=== PATIENT | female | born 2000 | race African-American/Black ===

== ENCOUNTER 2022-12-26 08:39 | Emergency (ER) | payer OTHER, SELFPAY ==
[2022-12-26 09:36] VITALS: BP 133/67; PULSE 76; RESP 18; TEMP 36.1; O2SAT 97; BMI 43.7
[2022-12-26] MEDS: Lidocaine 4 % Patch ADH..PATCH 2 PATCH TRANSDERMA (10:50)
[2022-12-26] MEDS: Cyclobenzaprine HCl 10 MG TABLET PO (10:50)
[2022-12-26] MEDS: Ketorolac Tromethamine 15 MG/ML VIAL 30 MG IM (10:56)
--- NOTE | 2022-12-26 11:15 | ED.BACK ---
HPI - Back Pain/Injury General Chief Complaint: Back Pain/Injury Stated Complaint: back pain Time Seen by Provider: 12/26/22 09:54 Source: patient Mode of arrival: ambulatory Limitations: no limitations History of Present Illness HPI Narrative: 22-year-old female hx of obesity, presenting to the emergency department for evaluation of bilateral lower back pain in the lumbar region, pain started last night, she attributes this pain to heavy lifting from groceries, she reports she was helping a friend when this started. She has been having an aching pain to bilateral lumbar region since yesterday, took Motrin 800 mg with little to no relief this morning. Patient reports she is very uncomfortable. Was brought in by her school. She denies fevers, chills, numbness, tingling, saddle paresthesias, weakness, urinary/ bowel incontinence / retention. No history of IV drug abuse or malignancy Related Data Previous Rx's Medication Instructions Recorded cyclobenzaprine 10 mg tablet 10 mg PO BEDTIME PRN muscle spasm 12/26/22 #7 tabs ketorolac 10 mg tablet 10 mg PO TID PRN pain 5 days #15 12/26/22 tabs lidocaine 5 % topical patch 1 patch topical DAILY PRN pain #15 12/26/22 ea prednisone 20 mg tablet 40 mg PO DAILY 5 days #10 tabs 12/26/22 Allergies Allergy/AdvReac Type Severity Reaction Status Date / Time Unable to Assess Allergy Unverified 12/26/22 10:39 Review of Systems Review of Systems: Constitutional : No Weight loss, No Fever, No Chills, ENT/Mouth : No Hearing loss, No Ear Pain, No Nasal Congestion, No Sinus Pain, No Hoarseness, No sore throat, No Rhinorrhea, No Swallowing Difficulty Cardiovascular : No Chest Pain, No SOB Respiratory : No Cough, No Dyspnea Gastrointestinal : No Nausea, No Vomiting, No Diarrhea, No abdominal Pain, No Hematochezia, No Melena Genitourinary : No Dysuria, No Urinary Frequency, No Hematuria, No Urinary Incontinence, Musculoskeletal : positive back pain Skin : No Skin Lesions, No rash Neuro : No Weakness, No Numbness, No Paresthesias, no loss of bowel or bladder incontinence, no saddle anesthesia Yes all other systems are reviewed and are negative PMFSH Past Medical History Attestation statement: The following information was validated with the patient. Source: old records reviewed and nursing notes reviewed Social History Social History Advance Directives: No Physical Exam Vital Signs: Vital Signs: Last Vital Signs Temp 96.6 F L 12/26/22 11:49 Pulse 62 12/26/22 11:49 Resp 18 12/26/22 11:49 BP 136/63 12/26/22 11:49 Pulse Ox 100 12/26/22 11:49 O2 Del Method Room Air 12/26/22 11:49 BMI result Body Mass Index 43.7 vss Appearance: Alert.? Oriented X3.? No acute distress.? Head: Normocephalic, atraumatic, no step-offs or deformities Eyes: Pupils equal, round and reactive to light.? CVS: Normal heart rate and rhythm.? Pulses normal.? Respiratory: No respiratory distress.? Breath sounds normal.? Skin: Skin warm and dry.? Normal skin color.? Normal skin turgor.? Extremities: No lower extremity edema.? No calf ttp. 5/5 strength to bilateral upper and lower extremities Back: No midline tenderness, no C-spine tenderness, full range of motion, no CVA tenderness bilaterally Negative straight leg raise bilaterally.+ there is lumbar paraspinous tenderness throughout bilaterally. Neuro: Oriented X 3.? No motor deficit.? No sensory deficit. CN 2-12 intact . No saddle paresthesias. Ambulating with steady gait normal coordination. Course Reevaluation(s) Reevaluation #1: Patient ambulatory around the department stating she feels much better however still having some residual pain. Will give Tylenol, discharge her home with Toradol, cyclobenzaprine, Lidoderm patch and short course of prednisone. Gave her spine is for follow-up. Educated patient on diagnosis and treatment plan, answered all question, patient verbalizes understanding. At this time patient will be discharged home, advised to return with new or worsening symptoms. Educated on worrisome signs and symptoms and when to return. At this time I feel comfortable discharge home. Time: 12:31 Medications Administered Discontinued Medications Generic Name Dose Route Start Last Admin Trade Name Freq PRN Reason Stop Dose Admin Cyclobenzaprine HCl 10 mg 12/26/22 10:39 12/26/22 10:50 Cyclobenzaprine Hcl 10 Mg Tablet PO 12/26/22 10:40 10 mg ONCE ONE Administration Ketorolac Tromethamine 30 mg 12/26/22 10:39 12/26/22 10:56 Ketorolac Tromethamine 15 Mg/Ml Vial IM 12/26/22 10:40 30 mg ONCE ONE Administration Lidocaine 2 patch 12/26/22 10:39 12/26/22 10:50 Lidocaine 4 % Patch Adh..Patch TRANSDERMA 12/26/22 10:40 2 patch ONCE ONE Administration Protocol Medical Decision Making Medical Decision Making MDM Narrative: 1100 22-year-old female presents with lower back pain status post lifting heavy groceries last night, reports bilateral. No red flag symptoms. Physical exam with lumbar paraspinous tenderness on palpation bilaterally. No midline tenderness. No saddle paresthesias. Normal strength upper and lower extremities. Ambulating with steady gait normal coordination. Likely lumbago versus lumbar sprain/ strain versus lumbar paraspinous muscle spasms versus herniated disc. Unlikely cauda equina, epidural abscess, cord compression. Plan at this time medication and re-evaluation. No indication for imaging as this is atraumatic back pain without red flag symptoms Differential Diagnosis Differential Diagnoses: The differential diagnosis associated with the presentation includes Likely lumbago versus lumbar sprain/ strain versus lumbar paraspinous muscle spasms versus herniated disc. Unlikely cauda equina, epidural abscess, cord compression. Admission/Observation Consideration of admission/observation: Escalation of care including admission/observation considered NO indication Tests considered The following testing was considered but not selected: No indication for imaging as this is atraumatic back pain without red flag symptoms Prescription Management I considered prescription management with: Pain Medication Core Measures AMI core measures followed: Yes Measure exclusions: not indicated Discharge Plan Discharge Clinical Impression: Strain of lumbar region Patient Disposition: Home, Self-Care Instructions: Muscle Strain (ED), Acute Low Back Pain (ED), Back Pain (ED), Lower Back Exercises (ED) Additional Instructions: Take your medications as prescribed. If you were prescribed antibiotics today, it is important that you take your medication to their entirety, do not skip any doses, do not finish them early. Follow-up with your primary care provider this week. Return to the emergency department with new or worsening symptoms. Such as fevers, chills, chest pain, shortness of breath, nausea, vomiting, dizziness, headache, vision changes, lethargy In case of emergency call 911 Toradol has been sent to your pharmacy, you tolerated this well in the department. Please take this as prescribed do not take this with ibuprofen, or other NSAIDs, do not mix this with alcohol. Side effects of this medication including increased risk for bleeding and possible kidney injury. Cyclobenzaprine as a muscle relaxer, it will make you sleepy, do not mix this with any other sedatives or any other medications that can make you tired Prescriptions: New cyclobenzaprine 10 mg tablet 10 mg PO BEDTIME PRN (Reason: muscle spasm) Qty: 7 0RF ketorolac 10 mg tablet 10 mg PO TID PRN (Reason: pain) 5 Days Qty: 15 0RF lidocaine 5 % adhesive patch,medicated 1 patch topical DAILY PRN (Reason: pain) Qty: 15 0RF Rx Instructions: leave on most painful area for up to 12 hrs prednisone 20 mg tablet 40 mg PO DAILY 5 Days Qty: 10 0RF Referrals: [facility] [Provider Group] - 1 week Physician,None [Primary Care Provider] - 1 week Stand Alone Forms: Work/School Release
[2022-12-26 11:49] VITALS: BP 136/63; PULSE 62; RESP 18; TEMP 35.9; O2SAT 100
[2022-12-26] MEDS: Acetaminophen 325 MG TABLET 650 MG PO (12:40)
== END 2022-12-26 12:42 | disposition home or self-care (01) ==
PROVIDERS: Emergency Provider Emergency Medicine
DX: S39.012A Strain of muscle, fascia and tendon of lower back, initial encounter (principal); X50.0XXA Overexertion from strenuous movement or load, initial encounter; Y93.89 Activity, other specified; Y92.9 Unspecified place or not applicable; Y99.9 Unspecified external cause status
CPT/HCPCS: 96372; 99283; 99284; J1885